=== PATIENT | female | born 1995 | race Caucasian/White ===

== ENCOUNTER → 2023-10-22 | Emergency (ER) | payer OTHER ==
--- OUTSIDE RECORDS SUMMARY | 2023-10-22 10:36 | XMS REPORT | Continuity of Care Document ---
Author Name Unknown Address [address] [place] [address] [facility] Address [address] [place] [address] Care Team Providers Care Communication Equipment Mechanic Name Role Phone Ted Hinson Primary Care Physician [phone] GLEN ALVAREZ Attending Clinician Unavailable CELIA RODRIGUEZ Attending Clinician Unavailable EVE CARBAJAL Attending Clinician Unavailable AMALIA AGUILERA Attending Clinician Unavailab le LAB90 Attending Clinician Unavailable DELMAR SERRANO Attending Clinician Unavailab Helene Castillo Attending Clinician Unavailable Doctor Unassigned, [place] Attending Clinician U navailable Cooley_OBrien_K Attending Clinician Unavailable TED ALVAREZ Attending Clinician Unavailable Chris Corona Attending Clinician МАРИНА Campos Attending Clinician Unavailable Lisa Garcia Attending Clinician [phone] LISA ALFONSO Attending Clinician Unavailable Ted Hinson Attending Clinician [phone] JASMIN LEIGH Attending Clinician Unavailabl e Cooley_OBrien_K Admitting Clinician Unavailable Physician, No Primary or Family Admitting Clinic fozia Unavailable Payers Payer Name Policy Type Policy Number Effective Date Expirati on Date Source [facility] PETTY ARREOLA COPAY FOCUS 9 [id number] 2023 00:00:00 [place] [id number] 2022 00:00:00 FAMILY PLANNING RADHA 101-150% [id number] 2020 00:00:00 Problems Condition Name Condition Details Condition Category Status Onset Date Resolution Date Last Treatment Date Treating Clinician Comments Source Well adult exam Well adult exam Disease Active 09-06 00:00: 00 Basilia richards Current moderate episode of major depressive disorder Current moderate episode of major depressive disorder Disease Active 09-06 00:00: 00 Basilia richards Mild major depression Mild major depression Disease Active 09-06 00:00: 00 Basilia richards Body mass index 20-24 - normal Body Mass Index 20-24 - Normal Problem Active 09-11 00:00: 00 [facility] Depression screening positive Depression Screening Positive Problem Active 09-11 00:00: 00 [facility] Removal of subcutaneo us contracept megan Removal of Subcutaneo us Contracept megan Problem Active 09-11 00:00: 00 [facility] Vaginal discharge Vaginal discharge Disease Active 09-04 00:00: 00 [facility] Bacterial vaginosis Bacterial vaginosis Disease Active 08-28 00:00: 00 [facility] Nexplanon in place Nexplanon in place Disease Active 08-28 00:00: 00 [facility] Allergies, Adverse Reactions, Alerts Allergy Name Allergy Type Status Severity Reaction(s) Onset Date Inactive Date Treating Clinician Comments Source No Known Allergie s DA Active U 3- 00:00: 00 [facility] NO KNOWN ALLERGIE S Drug Class Active [facility] Social History Social Habit Start Date Stop Date Quantity Comments Source History of tobacco use 2017-03-01 00:00:00 Cigarette Smoker [facility] Exposure to SARS-CoV-2 (event) Not sure [facility] Sexual orientation Sixto Mchugh - External Tobacco use and exposure 2023-09-06 00:00:00 2023-09-06 00:00:00 Smokeless tobacco non-user Basilia Mchugh - Jazzy History of Social function 2023-09-06 00:00:00 2023-09-06 00:00:00 Basilia Mchugh - External Alcohol intake 2020-08-30 00:00:00 2020-08-30 00:00:00 0 /d [facility] Cigarettes smoked current (pack per day) - Reported 2018-01-30 00:00:00 2018-01-30 00:00:00 [facility] Cigarette pack-years 2018-01-30 00:00:00 2018-01-30 00:00:00 [facility] Sex Assigned At 1995 00:00:00 1995 00:00:00 Basilia Mchugh - External Smoking Status Start Date Stop Date Source Never smoked tobacco Basilia Mchugh - External Smokes tobacco daily 2018-01-30 00:00:00 [facility] Medications Ordered Medication Name Filled Medication Name Start Date Stop Date Current Medication? Ordering Clinician Indication Dosage Frequency Signature (SIG) Comments Components Source Etonogestre l 68 MG subcutaneou s Implant 09-06 13:50: 28 Yes 68mg Inject 68 mg into the skin once. Basilia Eaton Externa susie Chlorhexidi ne Gluconate 0.12 % mouth/throa t Solution 09-03 00:00: 00 Yes HOLD 3.75 MLS IN THE MOUTH FOR 60 SECONDS AND THEN SPIT, TWICE A DAY, FOR 7 DAYS. Basilia Eaton Externa susie Sodium Fluoride 5000 Sensitive 1.1-5 % dental Gel 09-03 00:00: 00 Yes APPLY A PEA SIZE AMOUN TO TOOTHBRUSH , BRUSH FOR 2 MINUTES, AND THEN RINSE WELL TWICE A DAY. Basilia Eaton Externa l etonogestre L (NEXPLANON) implant 68 mg 08-30 23:45: 00 08-30 22:00 :00 No [id number] [facility]EXPLANON[facility] implant 68 mg 08-30 23:45: 00 08-30 22:00 :00 No [id number] 68mg 68 mg, Subdermal, ONCE NOW, 1 dose, 08/30/20 at 1745, Routine
Use approved by: PSYCHOPAEDIC NURSE [facility] etonogestre L (NEXPLANON) implant 68 mg 08-30 23:45: 00 08-30 22:00 :00 No [id number] 68mg Univer s [facility] etonogestre L (NEXPLANON) implant 68 mg 08-30 23:45: 00 08-30 22:00 :00 No [id number] 68mg 68 mg, Subdermal, ONCE NOW, 1 dose, 08/30/20 at 1745, Routine
Use approved by: PSYCHOPAEDIC NURSE [facility] etonogestre l 68 mg implant 2019-08 0 15:41: 35 Yes 68mg 68 mg by Subdermal route once now. [facility] etonogestre l 68 mg implant 2019-08 15:41: 35 Yes 68mg 68 mg by Subdermal route once now. [facility] etonogestre l 68 mg implant 2019-08 0 15:41: 35 Yes 68mg 68 mg by Subdermal route once now. [facility] etonogestre l 68 mg implant 2019-08 15:41: 35 Yes 68mg 68 mg by Subdermal route once now. [facility] etonogestre l 68 mg implant 2019-08 0 15:41: 35 Yes 68mg 68 mg by Subdermal route once now. [facility] etonogestre l 68 mg implant 2019-08 0 10:41: 35 Yes 68mg 68 mg by Subdermal route once now. [facility] etonogestre l 68 mg implant 2019-08 0 10:41: 35 Yes 68mg 68 mg by Subdermal route once now. [facility] etonogestre l 68 mg implant 08-28 23:06: 30 Yes 68mg 68 mg by Subdermal route once now. [facility] vitamin w/FA tablet 12-08 00:00: 00 Yes 1{tbl} Take 1 tablet by mouth daily. [facility] vitamin w/FA tablet 12-08 00:00: 00 Yes 1{tbl} Take 1 tablet by mouth daily. [facility] vitamin w/FA tablet 12-08 00:00: 00 Yes 1{tbl} Take 1 tablet by mouth daily. [facility] vitamin w/FA tablet 12-08 00:00: 00 Yes 1{tbl} Take 1 tablet by mouth daily. [facility] vitamin w/FA tablet 12-08 00:00: 00 Yes 1{tbl} Take 1 tablet by mouth daily. [facility] vitamin w/FA tablet 12-08 00:00: 00 Yes 1{tbl} Take 1 tablet by mouth daily. [facility] vitamin w/FA tablet 12-08 00:00: 00 Yes 1{tbl} Take 1 tablet by mouth daily. [facility] vitamin w/FA tablet 12-08 00:00: 00 Yes 1{tbl} Take 1 tablet by mouth daily. [facility] Immunizations Ordered Immunization Name Filled Immunization Name Date Status Comments Source HPV9 2017-07-22 00:00:00 Completed [facility] HPV9 2017-07-22 00:00:00 Completed [facility] HPV9 2017-07-22 00:00:00 Completed [facility] HPV9 2017-07-22 00:00:00 Completed [facility] HPV9 2017-07-22 00:00:00 Completed [facility] HPV9 2017-07-22 00:00:00 Completed [facility] HPV9 2017-07-22 00:00:00 Completed [facility] HPV9 2017-07-22 00:00:00 Completed [facility] HPV9 2017-01-10 00:00:00 Completed [facility] HPV9 2017-01-10 00:00:00 Completed [facility] HPV9 2017-01-10 00:00:00 Completed [facility] HPV9 2017-01-10 00:00:00 Completed [facility] HPV9 2017-01-10 00:00:00 Completed [facility] HPV9 2017-01-10 00:00:00 Completed [facility] HPV9 2017-01-10 00:00:00 Completed [facility] HPV9 2017-01-10 00:00:00 Completed [facility] HPV9 2016-12-08 00:00:00 Completed [facility] HPV9 2016-12-08 00:00:00 Completed [facility] HPV9 2016-12-08 00:00:00 Completed [facility] HPV9 2016-12-08 00:00:00 Completed [facility] HPV9 2016-12-08 00:00:00 Completed [facility] HPV9 2016-12-08 00:00:00 Completed [facility] HPV9 2016-12-08 00:00:00 Completed [facility] HPV9 2016-12-08 00:00:00 Completed [facility] TDAP 2016-09-26 00:00:00 Completed [facility] TDAP 2016-09-26 00:00:00 Completed [facility] TDAP 2016-09-26 00:00:00 Completed [facility] TDAP 2016-09-26 00:00:00 Completed [facility] TDAP 2016-09-26 00:00:00 Completed [facility] TDAP 2016-09-26 00:00:00 Completed [facility] TDAP 2016-09-26 00:00:00 Completed [facility] TDAP 2016-09-26 00:00:00 Completed [facility] Influenza Virus Vaccine Quad IM 3+ YRS 2016-05-08 00:00:00 Completed [facility] Influenza Virus Vaccine Quad IM 3+ YRS 2016-05-08 00:00:00 Completed [facility] Influenza Virus Vaccine Quad IM 3+ YRS 2016-05-08 00:00:00 Completed [facility] Influenza Virus Vaccine Quad IM 3+ YRS 2016-05-08 00:00:00 Completed [facility] Influenza Virus Vaccine Quad IM 3+ YRS 2016-05-08 00:00:00 Completed [facility] Influenza Virus Vaccine Quad IM 3+ YRS 2016-05-08 00:00:00 Completed [facility] Influenza Virus Vaccine Quad IM 3+ YRS 2016-05-08 00:00:00 Completed [facility] Influenza Virus Vaccine Quad IM 3+ YRS 2016-05-08 00:00:00 Completed [facility] HPV 9 (Human Papillomavirus) Unknown Completed Basilia Tan ld - External HPV 9 (Human Papillomavirus) Unknown Completed Basilia Tan ld - External HPV 9 (Human Papillomavirus) Unknown Completed Basilia Tan ld - External Influenza Virus Vaccine, No Preserv, age 6 months and up Unknown Completed Basilia Mchugh - External Tdap- (Boostrix, Adacel) Unknown Completed Basilia Dalyold - External Influenza, Injectable, Mdck, Quadrivalent With Preservative Unknown Completed Basilia Mchugh - External Vital Signs Vital Name Observation Time Observation Value Comments S ource Systolic blood pressure 2023-09-06 19:45:00 106 mm[Hg] Basilia ybo ld - External Diastolic blood pressure 2023-09-06 19:45:00 64 mm[Hg] Basilia Negroybo ld - External Heart rate 2023-09-06 19:45:00 77 /min Winston y Seybold - External Body temperature 2023-09-06 19:45:00 36.61 Beth Basilia ybold - External Respiratory rate 2023-09-06 19:45:00 18 /min Basilia ybold - External Body height 2023-09-06 19:45:00 176 cm Alanis gustafson Seybold - External Body weight 2023-09-06 19:45:00 72.802 kg Alanis gustafson Seybold - External BMI 2023-09-06 19:45:00 23.50 kg/m2 Alanis gustafson Seybold - External Oxygen saturation in Arterial blood by Pulse oximetry 2023-09-06 19:45:00 97 /min Basilia Dalyo ld - External BP Diastolic 2022-09-11 00:00:00 70 mm[Hg] [facility] Height 2022-09-11 00:00:00 69 [in_i] [facility] BMI (Body Mass Index) 2022-09-11 00:00:00 23.2 kg/m2 [facility] BP Systolic 2022-09-11 00:00:00 109 mm[Hg] [facility] Body Weight 2022-09-11 00:00:00 157 [lb_av] Cherrie garza [facility] Systolic blood pressure 2020-08-30 21:06:00 110 mm[Hg] [facility] Diastolic blood pressure 2020-08-30 21:06:00 74 mm[Hg] [place] [facility] Heart rate 2020-08-30 21:06:00 98 /min [facility] Body temperature 2020-08-30 21:06:00 36.89 Beth [facility] Respiratory rate 2020-08-30 21:06:00 18 /min [facility] Body height 2020-08-30 21:06:00 175.3 cm [facility] Body weight 2020-08-30 21:06:00 64.638 kg [facility] BMI 2020-08-30 21:06:00 21.04 kg/m2 [facility] Systolic blood pressure 2020-05-09 15:39:00 100 mm[Hg] [place] [facility] Diastolic blood pressure 2020-05-09 15:39:00 60 mm[Hg] [facility] Heart rate 2020-05-09 15:39:00 80 /min [facility] Body temperature 2020-05-09 15:39:00 36.72 Beth [facility] Respiratory rate 2020-05-09 15:39:00 19 /min [facility] Body height 2020-05-09 15:39:00 175.3 cm [facility] Body weight 2020-05-09 15:39:00 71.413 kg [facility] BMI 2020-05-09 15:39:00 23.25 kg/m2 [facility] Procedures Procedure Date / Time Performed Performing Clinician Source REFERRAL- REQUEST/RESPONSE 2022-09-19 06:01:00 Doctor Unassigned, [place] [facility] ASSIGNMENT OF BENEFITS 2021-09-04 15:50:23 Docto r Unassigned, [place] [facility] CONSENT FOR CONTRACEPTION 2020-08-30 06:01:00 Doctor Unassigned, [place] [facility] ASSIGNMENT OF BENEFITS 2020-05-09 14:44:02 Docto r Unassigned, [place] [facility] Plan of Care Planned Activity Planned Date Details Comments Source Instructions [facility] Start Date/Time End Date/Time Encounter Type Admission Type Attending [facility] Facility Care Department Encounter ID Source 2022-09-04 12:25:26 Outpatient CHW [facility] [id number] [facility] 2023-11-22 15:15:00 2023-11-22 15:15:00 Outpatient ALVAREZGLEN CHRISTENSEN [id number] [facility] 2023-11-18 10:30:00 2023-11-18 10:30:00 Outpatient CELIA RODRIGUEZ [id number] [facility] 2023-10-25 14:45:00 2023-10-25 14:45:00 Outpatient EVE CARBAJAL [id number] [facility] 2023-10-22 16:00:00 2023-10-22 16:00:00 Outpatient AMALIA AGUILERA [id number] [facility] 2023-10-22 00:00:00 2023-10-22 00:00:00 Outpatient AMALIA AGUILERA [id number] [facility] 2023-10-03 00:00:00 2023-10-03 00:00:00 Outpatient AMALIA AGUILERA [id number] [facility] 2023-09-20 15:00:00 2023-09-20 15:00:00 Outpatient BASILIA CANCINO [id number] [facility] 2023-09-06 14:50:00 2023-09-06 14:50:00 Outpatient LAB90 BASILIA CANCINO [id number] [facility] 2023-09-06 14:00:00 2023-09-06 14:00:00 Outpatient AMALIA AGUILERA [id number] [facility] 2022-10-03 15:30:00 2022-10-03 15:30:00 Outpatient DELMAR FOREMAN [facility] [id number] [facility] 2022-09-19 14:30:00 2022-09-19 14:30:00 Outpatient Helene Hutchins [facility] [id number] [facility] 2022-09-19 00:00:00 2022-09-19 00:00:00 Orders Only Doctor Unassigned, [place] [facility] 1..840.114 350.1.13.10 [id number] [id number] [facility] 2022-09-11 00:00:00 2022-09-11 00:00:00 Outpatient Cooley[facility]OBri en_K [facility] [id number] [facility] 2022-09-11 00:00:00 2022-09-11 00:00:00 Yumiko gallardo, PASUP: [address], [address], [place] [address] , Ph. [facility] - [place] - VM_HOU_Spac e [place] ([facility]) [id number] [facility] 2022-09-10 00:00:00 2022-09-10 00:00:00 Outpatient Cooley_OBri en_K [facility] [id number] [facility] 2022-08-29 14:30:00 2022-08-29 14:30:00 Outpatient TED COLORADO [facility] [id number] [facility] 2021-10-31 23:15:00 2021-11-01 00:07:00 Emergency EM [facility] [id number] [facility] 2021-09-04 10:15:00 2021-09-04 11:01:16 Outpatient МАРИНА DRIVER [facility] [id number] [facility] 2021-09-04 00:00:00 2021-09-04 00:00:00 Orders Only Doctor Unassigned, [place] [facility] 1..840.114 350.1.13.10 4.2.7.2.686 [id number] [facility] 2020-08-30 14:46:50 2020-08-30 16:08:37 Office Visit Jemima [facility] [id number] 350.1.13.10 4.2.7.2.686 [id number] [facility] 2020-08-30 15:00:00 2020-08-30 15:00:00 Outpatient R JEMIMA [facility] [id number] [facility] 2020-08-30 00:00:00 2020-08-30 00:00:00 Orders Only Doctor Unassigned, [place] [facility] [id number] 350.1.13.10 4.2.7.2.686 [id number] [facility] 2020-05-09 10:25:54 2020-05-09 11:25:[address] [facility] [id number] 350.1.13.10 [id number] [id number] [facility] 2020-05-09 10:30:00 2020-05-09 10:30:00 [id number] 2020-05-09 10:00:00 2020-05-09 10:00:00 [facility] [id number] 2020-05-09 00:00:00 2020-05-09 00:00:00 Orders Only Doctor Unassigned, [place] [facility] 1.20.114 350.1.13.10 4.2.7.2.686 [id number] [facility] 2019-10-29 16:45:00 2019-10-29 16:45:00 Outpatient R JASMIN LEIGH [facility] [id number] [facility] Results Test Description Test Time Test Comments Results Result Co mments Source ADD ONURINALYSIS [id number] 23:38:00* Test Item Value Reference Range Interpretation Comme nts UA COLOR (test code = COLU) YELLOW UA APPEARANCE (test code = APPU) SLHZY UA GLUCOSE DIPSTICK (test code = DGLUU) NORMAL mg/dl NORMAL UA BILIRUBIN DIPSTICK (test code = BILU) NEGATIVE mg/dL NEGATIVE UA KETONE DIPSTICK (test code = KETU) NEGATIVE mg/dl NEGATIVE UA SPECIFIC GRAVITY (test code = SGU) 1.015 1.000-1.030 UA BLOOD DIPSTICK (test code = JULIO) NEGATIVE Graeme/micL NEGATIVE UA PH DIPSTICK (test code = HANNA) 8.0 5.0-9.0 UA PROTEIN DIPSTICK (test code = PROU) 15 mg/dl mg/dl NEGATIVE A UA UROBILINIOGEN DIPSTICK (test code = URO) 1.0 mg/dl mg/dl NORMAL A UA NITRITE DIPSTICK (test code = KARENA) NEGATIVE NEGATIVE UA LEUKOCYTE ESTERASE DIPSTICK (test code = LEUU) NEGATIVE Nicole/micL NEGATIVE UA WBC (test code = WBCU) 0-3 WBC/HPF NONE UA RBC (test code = RBCU) 0-2 RBC/HPF 0-3 UA EPITHELIAL CELLS (test code = EPIU) 10-15 EPI/HPF 0-3 A UA BACTERIA (test code = BACU) MOD NONE UA RENAL CELLS (test code = ADRIANNE) FEW UA MUCUS (test code = MUCU) 4+ Notes Date/Time Note Provider Source 2023-09-06 13:51:35 [id number]:51:3 5 Chief ComplaintPatient presents withPhysicalFasting Berry Palaciosectronically signed by Kaleigh Ramirez LVN at 09/06/2023 1:53 PM [id number]:53:38Nurse [id number] for patient [id number] NoteLNNARRATIVEFormatted C-CDA narrative textAsc[facility] [facility].[id number] -02-02T13:53:[id number] [facility] 2021-11-01 00:10:00 [id number] 11-01T00:10:00 [facility] ([facility] PROVIDER REPORTREPORT#:[id number] REPORT STATUS: SignedDATE:11/01/21 TIME: 0010 PATIENT: MONAE GRIGGS UNIT #: [id number]#: [id number] ROOM/BED:AGE: 26 SEX: F PCP PHYS: No Primary or Family PhysicianSERVICE AUTHOR: Chris Corona MD * ALL edits or amendments must be made on the electronic/computer document * HPI-Abd Pain F Under 40 Free Text HPI NotesFree Text HPI Notes26 y/o F presenst with abd pain,nausea and vomiting. The symptoms began at 8pm and have not improved since that time. She denies chest pain,SOB,dizziness,hematemesis,back pain or fever. GeneralInitial Greet Date/Time 10/31/217 PresentationChief Complaint Abdominal pain Risk-Abd Pain F Under 40)( Ectopic Risk factors reviewed, No risk factors Past Medical History - AdultStated Complaint ABD PAIN, NAUSEA, DIZZINESSAllergiesCoded Allergies:No Known Allergies (10/31/21) Smoking status: Smoking status for patients 13 years old or older: Current every day smoker Physical Exam Vital SignsVital SignsFirst Documented: Result Date Time Pulse Ox 99 10/31 2316 B/P 94/65 10/31 2316 B/P Mean 74 10/31 2316 O2 Delivery Room air 10/31 2316 Temp 37.2 10/31 2316 Pulse 74 10/31 2316 Resp 14 10/31 2316 Last Documented: Result Date Time Pulse Ox 99 10/31 2316 B/P 94/65 10/31 2316 B/P Mean 74 10/31 2316 O2 Delivery Room air 10/31 2316 Temp 37.2 10/31 2316 Pulse 74 10/31 2316 Resp 14 10/31 2316 Review of Vital Signs Reviewed, Vital signs normal Focused PEGeneral/Const General/Const Awake, Alert Appearance/Presentation Ill appearing/not toxic. MS Head Head NormocephalicEyes Eyes Atraumatic, PERRL, EOMIEars/Nose/Throat Ears/Nose/Throat Airway patent, Mucous membranes moist, Pharynx NLResp/Chest Respiratory/Chest Breath sounds NL, Breath sounds = bilat, No respiratory distress, No rales, No rhonchi, No wheezingCardiovascular Cardiovascular Heart rate NL, Regular rhythm, Heart sounds NL, Peripheral circulation NLMS Back Back Inspection NL, Non-tender, No CVA tendernessSkin Skin Color NL, Warm, Dry, Turgor NLGenitourinary Female Genitourinary External genitalia NL, No bleeding, No discharge, No cervical motion tend, Os closed, No adnexal mass, No adnexal tenderness, No uterine enlargement, No uterine mass, No lesions or rashNeurologic Neurologic Oriented X3, Speech NL, No motor deficits, No sensory deficits Interpretation Diagnostics Lab Results InterpretationResultsLaboratory Tests: 10/315 2325 Urines Urine Color YELLOW Urine Appearance SLHZY Urine pH (5.0 - 9.0) 8.0 Ur Specific [place] (1.000 - 1.030) 1.015 Urine Protein (NEGATIVE mg/dl) 15 mg/dl H Urine Glucose (UA) (NORMAL mg/dl) NORMAL Urine Ketones (NEGATIVE mg/dl) NEGATIVE Urine Blood (NEGATIVE Graeme/micL) NEGATIVE Urine Nitrite (NEGATIVE) NEGATIVE Urine Bilirubin (NEGATIVE mg/dL) NEGATIVE Urine Urobilinogen (NORMAL mg/dl) 1.0 mg/dl H Ur Leukocyte Esterase (NEGATIVE Nicole/micL) NEGATIVE Urine RBC (0 - 3 RBC/HPF) 0-2 Urine WBC (NONE WBC/HPF) 0-3 Ur Epithelial Cells (0 - 3 EPI/HPF) 10-15 H Ur Renal Epithelial Cell FEW Urine Bacteria (NONE) MOD Urine Mucus 4+ Urine HCG, Qual (NEGATIVE) NEGATIVE Lab StatementLaboratory studies reviewed and considered in the medical decision-making. Re-Evaluation MDM Free Text MDM NotesFree Text MDM Notes26 y/o F presents with abd pain,nausea and vomiting DDX includes but is not limited to gastritis,gastroenteritis,viral uri,food poisioning,viral syndrome )( Re-Evaluation/Progress #1Text/Dict NoteUa results were not concerning at this time. The pt decided to leave AMA dueing her stay in the ED. Pt was give strict return precautions and instructe dto follow up with PCP. Time of Re-Eval 0005)( Re-Eval Status Improved, Unchanged Patient Discharge Departure Vital Signs/ConditionVital SignsFirst Documented: Result Date Time Pulse Ox 99 10/31 2317 B/P 94/65 10/31 2317 B/P Mean 74 10/31 2316 O2 Delivery Room air 10/31 2316 Temp 37.2 10/31 2316 Pulse 74 10/31 2316 Resp 14 10/31 2316 Last Documented: Result Date Time Pulse Ox 99 10/31 2317 B/P 94/65 10/31 2317 B/P Mean 74 10/317 O2 Delivery Room air 10/31 2316 Temp 37.2 10/31 2316 Pulse 74 10/31 2316 Resp 14 10/31 2316 All vital signs available at the time of this entry have been reviewed. Condition Stable Clinical ImpressionClinical ImpressionPrimary Impression: Abdominal painTime of Impression 0011 Disposition DecisionOther )( Time 0011 )( Date 11/01/21 Against Medical Advice Yes Quality MeasuresSmoking Cessation Screened, non user at 1530RPT #:[id number] OF REPORTEDEmerbaptist health [facility] institute department [id number] for patient [id number] [facility]"
[2023-10-22 12:09] LABS: Absolute Basophils 0.1 K/uL (0-0.5); Absolute Eosinophils 0.2 K/uL (0-0.5); Absolute Monocytes 0.5 K/uL (0.1-1.3); Basophils % 0.9 % (0-1.3); Eosinophils % 3.7 % (0-4.4); Hematocrit 41.5 % (36.0-45.0); Hemoglobin 14.5 g/dL (12.0-15.0); Lymphocytes % 29.8 % (15.3-44.8); MCHC 34.9 g/dL (32.0-36.0); MCV 91.7 fL (80-100); MPV 8.9 fL (7.6-11.3); Monocytes % 6.8 % (3.3-12.3); Neutrophils % 58.8 % (41.7-73.7); Platelets 267 thou/uL (152-406); RBC Red Blood Cell Count 4.53 M/uL (3.86-4.86)
[2023-10-22 12:11] LABS: Urine Bilirubin NEGATIVE (Negative); Urine Blood Negative (Negative); Urine Clarity Clear (Clear); Urine Color Light-Yellow (Yellow); Urine Glucose NEGATIVE (Negative); Urine Ketones NEGATIVE (Negative); Urine Microscopic Reflex YN NO UMIC; Urine Nitrite NEGATIVE (Negative); Urine Protein NEGATIVE (Negative); Urine Urobilinogen Normal (Normal)
[2023-10-22 12:45] LABS: Albumin 3.9 g/dL (3.4-5.0); Anion Gap 8.9 mEq/L (5.0-15.0); Bilirubin Total 0.6 mg/dL (0.2-1.0); Globulin 3.9 g/dL (2.3-3.5); Potassium 3.9 mEq/L (3.5-5.1); Protein, Total 7.8 g/dL (6.4-8.2)
--- NOTE | 2023-10-22 12:49 | RAD REPORT ---
EXAM DESCRIPTION: CT - Abdomen Pelvis W Contrast - 10/22/2023 12:41 pm CLINICAL HISTORY: ABD PAIN COMPARISON: No comparisonsNo comparisons TECHNIQUE: Thin cut axial CT imaging of the abdomen and pelvis was performed following intravenous a dministration of 100 mL Isovue 300. Multiplanar reformats were generated and reviewed. All CT scans are performed using dose optimization technique as appropriate and may include automated exposure control or mA/KV adjustment according to patient size. FINDINGS: No suspicious findings in the lung bases. The liver, spleen, adrenal glands, and pancreas show no suspicious findings. Gallbladder and biliary tree are also without suspicious finding. Symmetric renal function is seen with no hydronephrosis or suspicious renal mass. No dilated bowel loops or bowel wall thickening. No free air, free fluid or inflammatory stranding. N o hernia, mass or bulky lymphadenopathy. Ovoid right adnexal 6 cm cystic lesion without nodular or en hancing components. Lesion demonstrates subtle layering hyperdense material dependently which may rep resent proteinaceous or hemorrhagic content. The urinary bladder is without significant finding. No suspicious bony findings. IMPRESSION: Dominant right adnexal 6 cm cystic lesion as above. If this is concerning to be the caus e of the patient's symptoms, it can be further evaluated by dedicated pelvic ultrasound. No other acute intra- abdominal process.
--- NOTE | 2023-10-22 13:51 | RAD REPORT ---
EXAM DESCRIPTION: US - Pelvis Complete - 10/22/2023 1:18 pm CLINICAL HISTORY: RLQ pain, cyst, rule out torsion Pelvic pain. COMPARISON: Abdomen Pelvis W Contrast dated 10/22/2023; Transvaginal Study Probe dated 10/22/2023 FINDINGS: The uterus is normal in size, shape and echotexture. The uterus measures 7.8 x 4.1 x 3.1 c m. The endometrial stripe measures 2 mm, normal. Evidence of a right-sided hemorrhagic cyst is noted measuring 5.6 x 5.4 x 4.6 cm. Right ovary is othe rwise unremarkable. Left ovary is normal measuring 2.5 x 2.1 cm. Normal Doppler blood flow was demonstrated to both ovaries. No significant pelvic ascites. IMPRESSION: 5.6 cm hemorrhagic right ovarian cyst suspected.
--- NOTE | 2023-10-22 14:57 | RAD REPORT ---
EXAM DESCRIPTION: US - Transvaginal Study Probe - 10/22/2023 2:44 pm CLINICAL HISTORY: RT PELVIC PAIN Pelvic pain. COMPARISON: Pelvis Complete dated 10/22/2023 FINDINGS: The uterus is normal in size, shape and echotexture. The uterus measures 7.8 x 4.1 x 3.1 c m. The endometrial stripe measures 2 mm, normal. Evidence of the right-sided hemorrhagic cyst is noted measuring 5.6 x 5.4 x 4.6 cm. Right ovary is ot herwise unremarkable. Left ovary is normal measuring 2.5 x 2.1 cm. Normal Doppler blood flow was demonstrated to both ovaries. No significant pelvic ascites. IMPRESSION: 5.6 cm hemorrhagic right ovarian cyst suspected.
--- NOTE | 2023-10-22 15:55 | ER ---
Nurse's Notes [facility] Name: Jihan Jennings Age: 28 yrs Sex: Female : 1995 Arrival Date: 10/22/2023 Time: 10:33 Bed 9 Private MD: Chelita Lundberg Diagnosis: Other and unspecified ovarian cysts-hemorrhagic Presentation: 10/21 10:43 Chief complaint: Patient states: she started having right lower abdominal pain aprox ap3 3-4 days ago of which she rates 6/10 on the pain scale. Patient also reports nausea but no vomiting. Patient also states she has had normal urine and bowel habits. Coronavirus screen: At this time, the client does not indicate any symptoms associated with coronavirus-19. Ebola Screen: No symptoms or risks identified at this time. Initial Sepsis Screen: Does the patient meet any 2 criteria? No. Patient's initial sepsis screen is negative. Does the patient have a suspected source of infection? No. Patient's initial sepsis screen is negative. Risk Assessment: Do you want to hurt yourself or someone else? Patient reports no desire to harm self or others. Onset of symptoms was October 19, 2023. 10:43 Method Of Arrival: Ambulatory ap3 10:43 Acuity: ALEJO 3 ap3 Triage Assessment: 10:45 General: Appears in no apparent distress. Behavior is calm, cooperative, appropriate ap3 for age. Pain: Complains of pain in right lower quadrant Pain currently is 6 out of 10 on a pain scale. Pain began 2-3 days ago. Neuro: Level of Consciousness is awake, alert, obeys commands, Oriented to person, place, time, situation, Appropriate for age. Cardiovascular: Patient's skin is warm and dry. Respiratory: Airway is patent Respiratory effort is even, unlabored, Respiratory pattern is regular, symmetrical. GI: Reports nausea. 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 - Social history:: Smoking status: Patient denies any tobacco usage or history of. - Family history:: not pertinent. - Hospitalizations: : No recent hospitalization is reported. Screenin:46 Abuse screen: Denies threats or abuse. Nutritional screening: No deficits noted. ap3 Tuberculosis screening: No symptoms or risk factors identified. 14:24 [facility] ED Fall Risk Assessment (Adult) History of falling in the last 3 months, ll1 including since admission No falls in past 3 months (0 pts) Confusion or Disorientation No (0 pts) Intoxicated or Sedated No (0 pts) Impaired Gait No (0 pts) Mobility Assist Device Used No (0 pt) Altered Elimination No (0 pt) Score/Fall Risk Level 0 - 2 = Low Risk Maintained a safe environment, Hourly rounding (assess needs \T\ fall precautionary measures) done. Assessment: 14:10 Reassessment: No changes from previously documented assessment. Patient and/or family ll1 updated on plan of care and expected duration. Pain level reassessed. Patient is alert, oriented x 3, equal unlabored respirations, skin warm/dry/pink. 14:22 General: Appears uncomfortable, Behavior is calm, cooperative, appropriate for age. ll1 Pain: Complains of pain in right lower quadrant Quality of pain is described as aching, crampy. GI: Reports lower abdominal pain, nausea. Vital Signs: 10:43 BP 113 / 63; Pulse 84; Resp 17; Temp 97.4; Pulse Ox 100% ; Weight 63.5 kg; Height 5 ft. ap3 9 in. ; Pain 6/10; 14:22 BP 109 / 60; Pulse 70; Resp 15; Pulse Ox 100% on R/A; Pain 5/10; ll1 10:43 Body Mass Index 20.67 (63.50 kg, 175.26 cm) ap3 10:43 Pain Scale: Adult ap3 14:22 Pain Scale: Adult ll1 ED Course: 10:35 Patient arrived in ED. mr 10:36 Chelita Lundberg is Private Physician. mr 10:38 Nino Sheriff MD is Attending Physician. rn 10:45 Triage completed. ap3 10:48 Arm band placed on right wrist. ap3 12:02 Initial lab(s) drawn, by me, sent to lab. Urine collected: clean catch specimen, clear. ty Inserted saline lock: 22 gauge in left antecubital area, using aseptic technique. Missed attempt(s): 20 gauge in right forearm. Bleeding controlled, band aid applied, catheter tip intact. 12:03 CBC with Diff Sent. ty 12:03 CMP Sent. ty 12:03 Lipase Sent. ty 12:04 Test, Urine Sent. ty 12:04 Urinalysis w/ reflexes Sent. ty 14:11 Patient placed in an exam room, on a stretcher. ll1 14:23 Patient has correct armband on for positive identification. Provided Education on: Do ll1 not drink alcohol or drive on Tramadol prescribed. 14:23 No provider procedures requiring assistance completed. IV discontinued, intact, ll1 bleeding controlled, No redness/swelling at site. Pressure dressing applied. 15:53 CT Abd/Pelvis - IV Contrast Only In Process Unspecified. EDMS Administered Medications: No medications were administered Medication: 14:24 VIS not applicable for this client. ll1 Outcome: 14:10 Discharge ordered by . rn 14:23 Discharged to home ambulatory, ll1 14:23 Condition: stable 14:23 Discharge instructions given to patient, Instructed on discharge instructions, follow up and referral plans. no drinking with medication, no driving heavy equipment, medication usage, Demonstrated understanding of instructions, follow-up care, medications, Prescriptions given X 2, 14:25 Patient left the ED. ll1 Signatures: Dispatcher [employer] EDMS Karen Bowden, Reg Nino Salas MD MD rn Prokisch, Amanda, RN RN ap3 Lewis, Lynsay, RN RN ll1 Giancarlo Martinez ty
--- NOTE | 2023-10-22 15:55 | EDPHYS ---
Physician Documentation [facility] Name: Jihan Jennings Age: 28 yrs Sex: Female : 1995 Arrival Date: 10/22/2023 Time: 10:33 Bed 9 Private MD: Chelita Lundberg ED Physician Nino Sheriff HPI: 10/21 11:00 This 28 yrs old Female presents to ER via Ambulatory with complaints of abdominal pain. rn 11:00 The patient presents with abdominal pain right lower quadrant. Onset: The rn symptoms/episode began/occurred yesterday. The symptoms do not radiate. Associated signs and symptoms: Pertinent positives: nausea, Pertinent negatives: blood in stools, chest pain, dysuria, fever, vaginal discharge. The symptoms are described as sharp, steady. Modifying factors: The symptoms are alleviated by nothing, the symptoms are aggravated by movement, pressure. Severity of pain: At its worst the pain was moderate in the emergency department the pain is unchanged. The patient has not experienced similar symptoms in the past. 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 - Social history:: Smoking status: Patient denies any tobacco usage or history of. - Family history:: not pertinent. - Hospitalizations: : No recent hospitalization is reported. ROS: 11:00 Constitutional: Negative for fever, chills, and weight loss, Cardiovascular: Negative rn for chest pain, palpitations, and edema, Respiratory: Negative for shortness of breath, cough, wheezing, and pleuritic chest pain, Abdomen/GI: Positive for right lower quadrant abdominal pain and nausea Back: Negative for injury and pain, : Negative for injury, bleeding, discharge, and swelling, MS/Extremity: Negative for injury and deformity, Neuro: Negative for headache, weakness, numbness, tingling, and seizure, Exam: 11:00 Constitutional: This is a well developed, well nourished patient who is awake, alert, rn and in no acute distress. Cardiovascular: Regular rate and rhythm. No pulse deficits. Respiratory: No increased work of breathing, no retractions or nasal flaring. Abdomen/GI: Soft, positive right lower quadrant tenderness. No rebound or peritoneal signs. No distention MS/ Extremity: Pulses equal, no cyanosis. Neuro: Awake and alert, GCS 15 Vital Signs: 10:43 BP 113 / 63; Pulse 84; Resp 17; Temp 97.4; Pulse Ox 100% ; Weight 63.5 kg; Height 5 ft. ap3 9 in. ; Pain 6/10; 14:22 BP 109 / 60; Pulse 70; Resp 15; Pulse Ox 100% on R/A; Pain 5/10; ll1 10:43 Body Mass Index 20.67 (63.50 kg, 175.26 cm) ap3 10:43 Pain Scale: Adult ap3 14:22 Pain Scale: Adult ll1 MDM: 10:38 Patient medically screened. rn 14:08 Differential diagnosis: appendicitis, Ectopic , non-specific abd pain, Ovarian rn Torsion, urinary tract infection. 14:08 Data reviewed: vital signs, nurses notes, lab test result(s), radiologic studies, CT rn scan, ultrasound, and as a result, I will discharge patient. Counseling: I had a detailed discussion with the patient and/or guardian regarding the historical points, exam findings, and any diagnostic results supporting the discharge/admit diagnosis, lab results, radiology results, the need for outpatient follow up, to return to the emergency department if symptoms worsen or persist or if there are any questions or concerns that arise at home. Special discussion: Based on the patient's Hx, exam, and Dx evaluation, there is no indication for emergent surgery or inpatient Tx. It is understood by the patient/guardian that if the Sx's persist or worsen they need to return immediately for re-evaluation. I discussed with the patient/guardian in detail that at this point there is no indication for admission to the hospital. It is understood, however, that if the symptoms persist or worsen the patient needs to return immediately for re-evaluation. 14:08 ED course: CT negative for appendicitis, shows possible right cystic lesion in the rn adnexa. Ultrasound performed subsequently and shows 6 cm possible hemorrhagic cyst of right ovary. No indication for emergent admission at this time. I have personally reviewed all of the results, including but not limited to blood tests and imaging deemed necessary to safely discharge this patient at this time. All results given to and printed out for patient. I personally went over all the results with the patient and answered all questions. Patient will follow-up with PCP and or specialist as discussed. Return precautions given and understood.. 10/21 10:52 Order name: CBC with Diff; Complete Time: 12:18 rn 10/21 10:52 Order name: CMP rn 10/21 10:52 Order name: Lipase rn 10/21 10:52 Order name: Test, Urine; Complete Time: 12:18 rn 10/21 10:52 Order name: Urinalysis w/ reflexes; Complete Time: 12:18 rn 10/21 10:52 Order name: CT Abd/Pelvis - IV Contrast Only rn 10/21 10:52 Order name: IV Saline Lock; Complete Time: 12:03 rn 10/21 10:52 Order name: Labs collected and sent; Complete Time: 12:03 rn Administered Medications: No medications were administered Disposition Summary: 10/22/23 14:10 Discharge Ordered Notes: Location: Home rn Problem: new rn Symptoms: have improved rn Condition: Stable rn Diagnosis - Other and unspecified ovarian cysts - hemorrhagic rn Followup: rn - With: Private Physician - When: As needed - Reason: Recheck today's complaints, Re-evaluation by your physician Discharge Instructions: - Discharge Summary Sheet rn - Ovarian Cyst rn Forms: - Medication Reconciliation Form rn - Thank You Letter rn - Antibiotic rn burn - Prescription Opioid Use rn - Patient Portal Instructions rn - Leadership Thank You Letter rn Prescriptions: - Diclofenac Sodium 75 mg Oral tablet, delayed release (enteric coated) - take 1 tablet ORAL route 2 times per day As needed; 14 tablet; Refills: 0, rn Product Selection Permitted - Tramadol 50 mg Oral Tablet - take 1 tablet ORAL route every 8 hours as needed; 12 tablet; Refills: 0, rn Product Selection Permitted Signatures: Dispatcher [employer] Nino Landon MD MD rn Prokisch, Amanda, RN RN ap3
[2023-10-22 16:54] VITALS: BP 109/60; TEMP 97.4; O2SAT 100
== END ==
LOC: ER 10:33
DX: N83.201 Unspecified ovarian cyst, right side (principal)
CPT/HCPCS: 85025; 36415; 81025; 81003; 83690; 80053; 74177; 76856; 76830; Q9967